=== PATIENT | male | born 1985 | race African-American/Black ===

== ENCOUNTER 2023-01-29 04:10 | Emergency (ER) | payer SELFPAY ==
[2023-01-29] MEDS ORDERED: ETOMIDATE 20 MG/10 ML VIAL IV ONE (04:32)
[2023-01-29] MEDS ORDERED: ROCURONIUM 50 MG/5 ML VIAL IV ONE (04:32)
[2023-01-29] MEDS ORDERED: NA CHLORIDE 0.9% 1,000 ML ONE (04:33)
[2023-01-29] MEDS ORDERED: MIDAZOLAM HCL IN 0.9 % NACL/PF 100 MG/100 ML BAG IVPB ONE (04:33)
[2023-01-29 04:51] LABS: Absolute Lymphocytes (CBC) 2.7 K/uL (0.7-4.9); Hematocrit 44.9 % (39.6-49.0); Lymphocytes % 26.2 % (15.3-44.8); MCV 86.8 fL (80-100); MPV 7.4 fL (7.6-11.3); Platelets 316 thou/uL (152-406); RBC Red Blood Cell Count 5.17 M/uL (4.33-5.43)
[2023-01-29 04:53] LABS: Arterial Blood Carboxyhemoglob 2.8 % (0-1.5); Blood Gas Oxyhemoglobin 94.3 % (94-97); Blood O2 Saturation 98.5 % (92-98.5)
[2023-01-29] MEDS ORDERED: NA CHLORIDE 0.9% 100 ML ONE (04:58)
[2023-01-29] MEDS ORDERED: LEVETIRACETAM 500 MG/5 ML VIAL IV ONE (04:58)
[2023-01-29] MEDS ORDERED: PANTOPRAZOLE 40 MG INJ ONE (05:10)
[2023-01-29 05:25] LABS: Albumin 3.3 g/dL (3.4-5.0); Bilirubin Direct 0.1 mg/dL (0-0.2); Bilirubin Indirect, Calculated 0.2 mg/dL (0.2-0.8); Bilirubin Total 0.3 mg/dL (0.2-1.0); C-Reactive Protein 7.12 mg/L (<3.00); Protein, Total 7.5 g/dL (6.4-8.2); Troponin High Sensitivity 17.3 pg/mL (<58.9)
[2023-01-29 05:31] LABS: Magnesium 2.4 mg/dL (1.6-2.4); Potassium 4.7 mEq/L (3.5-5.1)
[2023-01-29 05:32] LABS: Barbiturates NEGATIVE (NEGATIVE); Benzodiazepines POSITIVE (NEGATIVE); Cocaine POSITIVE (NEGATIVE); METHAMPHETAM POSITIVE (NEGATIVE); Opiates NEGATIVE (NEGATIVE); Phencyclidine NEGATIVE (NEGATIVE); THC Cannibis POSITIVE (NEGATIVE)
[2023-01-29 05:35] LABS: Methadone ND (NEGATIVE)
[2023-01-29 05:53] LABS: Specific Gravity 1.011 (1.005-1.030); Urine Bacteria <20 /HPF (<20); Urine Bilirubin NEGATIVE (Negative); Urine Blood Negative (Negative); Urine Clarity Turbid (Clear); Urine Color Light-Yellow (Yellow); Urine Glucose NEGATIVE (Negative); Urine Mucus Slight /HPF (None Seen); Urine Protein 1+ (Negative); Urine RBC None Seen /HPF (None Seen); Urine Sperm Present (None Seen); Urine Urobilinogen Normal (Normal)
--- NOTE | 2023-01-29 06:35 | EDPHYS ---
Physician Documentation [facility] Name: Luca Zepeda Age: 37 yrs Sex: Male : 1985 Arrival Date: 01/29/2023 Time: 04:10 Bed 2 Private MD: ED Physician Jonathan Banerjee HPI: 01/29 04:30 This 37 yrs old Black Male presents to ER via EMS with complaints of suicide attempt sp4 via hanging . 04:32 37-year-old male brought in by EMS after he was found unresponsive by his girlfriend sp4 and given in the noose fashioned by the belt. As reported by EMS patient was found by his girlfriend with a belt around his neck hanging at home. Patient's girlfriend reports that she took him out of the belt and positioned him on the floor. On arrival patient was unresponsive clammy and diaphoretic. Patient was placed in a c-collar and brought into ambulance where he begun posturing. Patient was then intubated for airway protection and given RSI medications prior to intubation. On arrival patient has reactive pupils but he remains unresponsive. ET tube size 7 is present on arrival c-collar is present left forearm IVs present on arrival. No additional history available, no known past medical history, no known allergies, no known medications. Patient's girlfriend has reported that patient has been consuming alcohol lately.. Historical: - Allergies: 04:17 No Known Drug Allergies; kl - Immunization history:: Adult Immunizations unknown. - Social history:: unknown, Smoking status: unknown. - Family history:: not pertinent. ROS: 04:32 Constitutional: ROS not available secondary to unresponsive condition sp4 04:32 Unable to obtain ROS due to patient is on ventilator, Exam: 04:32 Constitutional: This is a well developed, well nourished patient who is intubated on sp4 arrival unresponsive GCS of 3, pupils are equal round reactive to light. Head/Face: Normocephalic, atraumatic. Eyes: Pupils equal round and reactive to light, extraocular eye movements cannot be checked ENT: Nares patent. No nasal discharge, no septal abnormalities noted. Tympanic membranes are normal and external auditory canals are clear. Oropharynx with no redness, on examination significant posterior pharyngeal swelling noted Neck: Trachea midline, no thyromegaly or masses palpated, patient has c-collar present on arrival. Chest/axilla: Normal chest wall appearance and motion. Nontender with no deformity. No lesions are appreciated. Cardiovascular: Regular rate and rhythm with a normal S1 and S2. No gallops, murmurs, or rubs. Normal PMI, no JVD. No pulse deficits. Respiratory: Lungs have equal breath sounds bilaterally, clear to auscultation and percussion. No rales, rhonchi or wheezes noted. Patient is being ventilated with Ambu bag via ET tube. ET tube was exchanged to a larger size 8 ET tube on arrival. Abdomen/GI: Soft, No distension or tympany. No guarding or rebound. Back: No signs of step-off or deformity on spinal exam Male : Normal genitalia with no discharge or lesions. Skin: Warm, dry with normal turgor. Normal color with no rashes, no lesions, and no evidence of cellulitis. MS/ Extremity: Pulses equal, no cyanosis. Intact bilateral peripheral pulses, no signs of deformity or injury Neuro: Unresponsive, intubated, GCS of 3, additional exam is not possible 04:32 ECG was reviewed by the Attending Physician. EKG time 0 434, sinus tachycardia at the rate of 106, no ST elevation or depression, no ectopy, normal intervals Vital Signs: 04:20 BP 108 / 81; Pulse 102; Resp 16; Pulse Ox 100% on ETT ambu; FiO2 100 %; kl 04:43 Weight 72.57 kg; rv 05:00 BP 145 / 109; Pulse 113; Resp 16; Pulse Ox 100% on ETT vent; FiO2 50 %; rv 05:30 BP 125 / 93; Pulse 88; Resp 16; Pulse Ox 100% on ETT vent; FiO2 50 %; rv 06:00 BP 119 / 90; Pulse 90; Resp 16; Pulse Ox 100% ; FiO2 50 %; rv 06:25 Temp 94.9; rv 07:00 BP 129 / 102; Pulse 83; Resp 16; Temp 95.3(Ca); Pulse Ox 100% on ETT vent; FiO2 50 %; ph 07:24 BP 124 / 99; Pulse 90; Resp 16 S; Temp 95.4(Ca); Pulse Ox 100% on ETT vent; FiO2 50 %; kc6 08:00 BP 113 / 80; Pulse 91; Resp 16; Temp 95.9(Ca); Pulse Ox 100% on ETT vent; FiO2 50 %; ph 08:30 BP 119 / 82; Pulse 94; Resp 16 S; Temp 96.3(Ca); Pulse Ox 100% on ETT vent; FiO2 50 %; kc6 09:08 BP 114 / 82; Pulse 93; Resp 16; Temp 96.3(Ca); Pulse Ox 100% on ETT vent; FiO2 50 %; ph Procedures: 06:51 Intubation: Ventilated with 100% NRB prior to procedure. O2 saturation prior to sp4 procedure was 100 %. Intubated orally using # 4 Glory blade with 8.0 mm ETT. was successful on first attempt. Ventilated with Ambu bag. ventilator. Tube secured with ETT degroot at center of mouth measured 25 cm at lip. Placement verified by CXR, CO2 detector with (+) color change, auscultating bilateral breath sounds, O2 saturation after procedure was 100 %. [place] scope assisted intubation. Patient tolerated well, Size 7 ET tube that was placed by EMS was removed in ER and a size 8 ET tube was placed. MDM: 04:44 Patient medically screened. sp4 04:48 ED course: Chest X ray - FINDINGS: Single frontal view of the chest. Tubes and lines: sp4 Endotracheal tube with tip 4 cm above the tiffanie. NG tube with tip in stomach. Leads overlie the chest. Cardiomediastinal silhouette: Heart is not enlarged. Lungs: No consolidation, pneumothorax, or pleural effusion. Bones: No acute osseous abnormalities identified. Upper abdomen: No additional findings. IMPRESSION: Endotracheal tube and NG tube in appropriate position.. 06:18 ED course: CT neck - COMPARISON: No relevant prior studies available. FINDINGS: sp4 OROPHARYNX: See below. No significant tonsillar enlargement. No peritonsillar abscess. HYPOPHARYNX: See below. LARYNX: Unremarkable. Normal epiglottis. TRACHEA: Unremarkable. RETROPHARYNGEAL SPACE: Unremarkable. SUBMANDIBULAR/PAROTID GLANDS: Unremarkable. Glands are normal in size. THYROID: Unremarkable. No enlarged or calcified nodules. BONES/JOINTS: Straightening of the cervical spine as the patient is positioned. No vertebral body height loss. Dens is intact. No fracture or subluxation. No dislocation. Craniocervical orientation is normal. No significant spinal canal stenosis. SOFT TISSUES: Mild circumferential soft tissue swelling and thickening is demonstrated within the oral pharyngeal and hypopharyngeal soft tissues, with mild associated narrowing of the airway around the endotracheal tube, presumably related to tube placement. No abnormal prevertebral soft tissue swelling. No paravertebral soft tissue swelling. VASCULATURE: No acute findings. No acute abnormalities of the left or right cervical carotid or vertebral arteries. LYMPH NODES: Unremarkable. No lymphadenopathy. LUNG APICES: Unremarkable as visualized. TUBES, LINES AND DEVICES: ETT terminates approximately 1.5 cm proximal to the tiffanie. Enteric tube partially visualized, but demonstrated within the visualized esophagus. IMPRESSION: 1. No acute osseous abnormality of the cervical spine. No gross abnormalities of the soft tissues of the neck. 2. Support devices as above. . 06:32 ED course: CT head, C spine, chest , abdomen , pelvis - FINDINGS: Brain: No significant sp4 white matter changes. No focal mass effect. Sheikh-white matter differentiation is within normal limits. No hemorrhage. Ventricles: No ventriculomegaly or midline shift. Extra-axial spaces: No extra-axial collection or hemorrhage. Paranasal sinuses and mastoid air cells: Well-aerated Bones: Unremarkable Soft tissues: Unremarkable IMPRESSION: No evidence of acute intracranial pathology. PROCEDURE: Head C Spine Cap W Con CLINICAL HISTORY: hanging TECHNIQUE: Contiguous axial CT images obtained through the cervical spine without IV contrast. Coronal and sagittal reformatted images also provided. This exam was performed according to our departmental dose-optimization program, which includes automated exposure control, adjustment of the mA and/or kV according to patient size and/or use of iterative reconstruction technique. COMPARISON: None available for comparison FINDINGS: Vertebra: No acute fracture or subluxation. Degenerative changes: Intervertebral disc spaces are fairly well maintained. No critical canal stenosis. Foramina appear patent. Prevertebral soft tissues: Unremarkable Lung apices: Clear IMPRESSION: No acute cervical spine fracture. IPROCEDURE: Head C Spine Cap W Con CLINICAL HISTORY: hanging TECHNIQUE: Contiguous axial images obtained through the chest , abdomen and pelvis following the uneventful administration of IV contrast. Coronal and sagittal reformatted images provided. This exam was performed according to our departmental dose-optimization program, which includes automated exposure control, adjustment of the mA and/or kV according to patient size and/or use of iterative reconstruction technique. COMPARISON: No prior exams provided for comparison. FINDINGS: Lungs: No focal consolidation. Airways are patent. ET tube proximal to the level of the tiffanie. Soft tissue density within the trachea and extending to the left mainstem bronchus, consistent with aspiration. Atelectatic changes in the lung bases. Pleura: No effusion. No pneumothorax. Heart and pericardium: The heart is normal in size. No pericardial effusion. Mediastinum and carolyn: Calcified hilar and mediastinal nodes. Lower neck and chest wall: Unremarkable Vessels: Unremarkable Bones: Unremarkable Liver: Unremarkable Gallbladder and biliary system: Unremarkable Pancreas: Unremarkable Spleen: Unremarkable Adrenals: Unremarkable Kidneys: No evidence of urolithiasis or obstructive uropathy. Gl : NG tube in the stomach. No obstruction. No appreciable mucosal thickening. Appendix: No findings to suggest acute appendicitis. Urinary bladder: Ovalles catheter in the urinary bladder. Reproductive: Unremarkable as visualized Lymph nodes: No pathologically enlarged lymph nodes. Peritoneum: No focal fluid collection. No free air. Vessels: No abdominal aortic aneurysm. Abdominal wall: Unremarkable Bones: Unremarkable IMPRESSION: 1. Soft tissue density within the trachea and extending to the left mainstem bronchus, consistent with aspiration. 2. No acute intra-abdominal or pelvic pathology.. 06:35 Differential Diagnosis altered mental status, sepsis, flu. Data reviewed: vital signs, sp4 nurses notes, EMS record, lab test result(s), EKG, radiologic studies, CT scan, plain films. Consideration of Admission/Observation Escalation of care including admission/observation considered. Management of patient was discussed with the following: Network Security Consultant: Discussed with [facility] hospitalist. 06:52 ED course: Patient with require therapeutic hypothermia for the next 24 hours. Patient sp4 at this time remains at 94.9 F which is consistent with temperature goal. I have discussed patient with hospitalist at the admitting service, and hospitalist requested transfer for higher level of care for hypothermia and other management in ICU.. ICU bed is currently not available here. . 07:09 Transition of care: After a detail discussion of the patient's case, care is sp4 transferred to Jonathan Banerjee MD. 07:09 ED course: Awaiting for transfer at this time. sp4 07:30 ED course: Discussed case with [facility] aeroplane pilot who has graciously accepted sp3 this patient. We will transfer him via ground EMS. Patient is currently stable and is sedation has been switched to propofol.. 01/29 04:12 Order name: Basic Metabolic Panel; Complete Time: 05:32 [facility] 01/29 04:12 Order name: CBC with Diff; Complete Time: 05:19 [facility] 01/29 04:12 Order name: LFT's; Complete Time: 05:32 [facility] 01/29 04:12 Order name: Magnesium; Complete Time: 05:32 [facility] 01/29 04:12 Order name: NT PRO-BNP; Complete Time: 05:32 [facility] 01/29 04:12 Order name: PT-INR; Complete Time: 05:19 [facility] 01/29 04:12 Order name: Troponin HS; Complete Time: 05:32 [facility] 01/29 04:13 Order name: Alcohol Level; Complete Time: 05:32 [facility] 01/29 04:13 Order name: Urine Drug Screen; Complete Time: 05:45 [facility] 01/29 04:14 Order name: Urinalysis W/Microscopic; Complete Time: 06:06 [facility] 01/29 04:14 Order name: COVID-19 SARS RT PCR; Complete Time: 06:06 [facility] 01/29 04:42 Order name: Lactate w/ 2H reflex if indic.; Complete Time: 05:45 [facility] 01/29 04:45 Order name: ABG; Complete Time: 05:03 [facility] 01/29 04:48 Order name: Creatine Phosphokinase; Complete Time: 05:32 [facility] 01/29 04:48 Order name: C-Reactive Protein; Complete Time: 05:32 [facility] 01/29 06:44 Order name: CREATININE WHOLE BLOOD; Complete Time: 06:50 [facility] 01/29 08:51 Order name: Lactate Sepsis 2 HR Follow-up; Complete Time: 09:55 [facility] 01/29 04:12 Order name: XRAY Chest (1 view) [facility] 01/29 04:13 Order name: CT Soft Tissue Neck W/contr [facility] 01/29 04:40 Order name: Head C Spine Cap W Con [facility] 01/29 04:12 Order name: EKG; Complete Time: 04:13 [facility] 01/29 04:12 Order name: Cardiac monitoring; Complete Time: 04:24 [facility] 01/29 04:12 Order name: EKG - Nurse/Tech; Complete Time: 04:43 [facility] 01/29 04:12 Order name: IV Saline Lock; Complete Time: 04:24 sp4 01/29 04:12 Order name: Labs collected and sent; Complete Time: 04:24 sp4 01/29 04:12 Order name: O2 Per Protocol; Complete Time: 04:24 sp4 01/29 04:12 Order name: O2 Sat Monitoring; Complete Time: 04:24 sp4 01/29 04:14 Order name: Intubation Setup; Complete Time: 04:51 sp4 01/29 04:14 Order name: NG Tube; Complete Time: 04:48 sp4 01/29 04:14 Order name: Ovalles; Complete Time: 04:48 sp4 EC:32 Rate is 106 beats/min. Rhythm is regular, Sinus tachycardia. QRS [place] is Normal. MI sp4 interval is normal. QRS interval is normal. QT interval is normal. No Q waves. T waves are Normal. No ST changes noted. Clinical impression: No evidence of ischemia. Interpreted by me. Administered Medications: 04:18 Drug: Etomidate IVP 40 mg IVP once Route: IVP; Site: left forearm; ha1 04:20 Drug: Rocuronium IVP 100 mg IVP once Route: IVP; Site: left forearm; ha1 04:36 Drug: Midazolam IVP or IV 0.01 mg/kg/h IV at calculated rate See Administration ha1 Instructions; (Standard concentration: 100 mg / 100 mL NS); Recommended max rate 0.1 mg/kg/hr; Titrate 0.01 mg/kg/hr as often as every 30 minutes to achieve goal (see titration policy); Goal parameter RASS 0 to -2 {Note: 1 mg /hr.} Route: IV; Rate: calculated rate; Site: left forearm; 05:00 Follow up: Response: No adverse reaction ha1 08:51 Follow up: Rate change 2 mg/hr ph 04:42 Drug: NS 0.9% IV 1000 ml IV at 1 bolus Per protocol; 1000 mL bolus Route: IV; Rate: 1 rv bolus; Site: right antecubital; 04:42 Drug: Keppra IV 1000 mg IV at bolus once Route: IV; Rate: bolus; Site: right rv antecubital; 05:00 Drug: Pantoprazole IVP 40 mg IVP once Route: IVP; Site: right upper arm; rv 06:00 Follow up: Response: No adverse reaction ha1 06:30 Drug: D5-NS IV 1000 ml IV at 125 ml/hr continuous Route: IV; Rate: 125 ml/hr; Site: ha1 right antecubital; 07:23 Follow up: Response: No adverse reaction; IV Status: Infusion continued upon admission [facility] 07:20 Drug: Propofol IV 5 mcg/kg/min IV at calculated rate See Administration Instructions; kc6 Standard concentration 1000 mg / 100 mL; Recommended max rate 50 mcg/kg/min; Titrate 2 mcg/kg/min every 5 minutes to achieve goal (see titration policy); Goal parameter RASS score 0 to -2 Route: IV; Rate: calculated rate; Site: right upper arm; 08:00 Follow up: Rate change 10 mcg/kg/min ph 08:36 Follow up: Response: No adverse reaction; RASS: Moderate sedation (-3); IV Status: kc6 Infusion continued upon transfer 08:52 Follow up: Rate change 15 mcg/kg/min ph 09:21 Follow up: Response: No adverse reaction; RASS: Moderate sedation (-3); IV Status: ph Infusion continued upon transfer 07:20 Drug: Propofol IVP 20 mg IVP once; Document RASS score. Route: IVP; Site: right upper 6 arm; 08:36 Follow up: Response: No adverse reaction; RASS: Moderate sedation (-3) [facility] 09:21 Follow up: Response: No adverse reaction; RASS: Moderate sedation (-3) ph Disposition Summary: 01/29/23 06:34 Transfer Ordered Notes: Transfer Location: [facility] sp4 Reason: Higher level of care sp4 Condition: Stable sp4 Problem: new sp4 Symptoms: have improved sp4 Accepting Physician: [facility] hospitalist (01/29/23 09:57) ph Diagnosis - Asphyxia sp4 - Hypoxic brain injury, intentional suicide attempt, asphyxiation, acute respiratory sp4 failure Forms: - Medication Reconciliation Form sp4 - SBAR form sp4 Critical care time excluding procedures: 06:35 Critical care time: Bedside Care: 36 minutes, Consultation: 12 minutes. Total time: 48 sp4 minutes Signatures: Dispatcher [employer] Zulema Briceno RN RN kl Hall, Patricia, RN RN ph Vicente, Ronaldo, RN RN rv Patel, Setul, MD MD sp3 Jinny De La Torre RN RN ha1 Henrietta Franz RN RN kc6 Miguel A Lopez MD MD sp4 Corrections: (The following items were deleted from the chart) 04:18 04:17 PMHx: Hypertension; kl kl 04:40 04:13 Head C Spine MPR Wo Con+CT.RAD.BRZ ordered. EDMS EDMS 04:41 04:33 Chest Abdomen Pelvis W Con+CT.RAD.BRZ ordered. EDMS EDMS 04:48 04:43 CREATINE PHOSPHOKINASE+C.LAB.BRZ ordered. EDMS EDMS 04:48 04:43 C-REACTIVE PROTEIN+C.LAB.BRZ ordered. EDMS EDMS 09:57 06:[facility]
--- NOTE | 2023-01-29 06:35 | ER ---
Nurse's Notes [facility] Name: Luca Zepeda Age: 37 yrs Sex: Male : 1985 Arrival Date: 01/29/2023 Time: 04:10 Bed 2 Private MD: Diagnosis: Asphyxia;Hypoxic brain injury, intentional suicide attempt, asphyxiation, acute respiratory failure Presentation: 01/29 04:15 Chief complaint: EMS states: found unresponsive in closet with belt around neck per pt kl girlfriend pt has been drinking heavily and depressed recently. Initial Sepsis Screen: Does the patient meet any 2 criteria? No. Patient's initial sepsis screen is negative. Does the patient have a suspected source of infection? No. Patient's initial sepsis screen is negative. Risk Assessment: Do you want to hurt yourself or someone else? Unable to obtain. Note pt intubated by EMS reports no spontaneous breathing pt was diaphoretic. 04:15 Method Of Arrival: EMS: [facility] 04:15 Acuity: JOHN 2 04:15 Onset of symptoms was January 29, 2023. ha1 07:00 Coronavirus screen: At this time, the client does not indicate any symptoms associated kc6 with coronavirus-19. Ebola Screen: No symptoms or risks identified at this time. Triage Assessment: 04:18 General: Appears well developed, well nourished, Behavior is unresponsive. Pain: Unable kl to use pain scale. Patient is intubated. Patient is unresponsive. Neuro: Level of Consciousness is unresponsive, Pupils are Pupil Size: 2 pinpoint. Cardiovascular: Rhythm is sinus tachycardia. Respiratory: Ventilator assessment: ET Tube: 7.0 Ventilator Mode: hand bagging. Historical: - Allergies: 04:17 No Known Drug Allergies; kl - Immunization history:: Adult Immunizations unknown. - Social history:: unknown, Smoking status: unknown. - Family history:: not pertinent. Screenin:24 Nutritional screening: No deficits noted. Tuberculosis screening: No symptoms or risk ha1 factors identified. 07:00 Abuse screen: unable to obtain at this time as pt is currently unresponsive and orally kc6 intubated. 07:[address] [facility] ED Fall Risk Assessment (Adult) History of falling in the last 3 months, kc6 including since admission No falls in past 3 months (0 pts) Confusion or Disorientation No (0 pts) Intoxicated or Sedated Yes (3 pts) Impaired Gait No (0 pts) Mobility Assist Device Used No (0 pt) Altered Elimination No (0 pt) Score/Fall Risk Level 3 or more points = High Risk. Assessment: 04:15 General: Appears well developed, Behavior is unresponsive. Pain: Unable to use pain ha1 scale. FLACC scale score is 0 out of 10. Neuro: Level of Consciousness is unresponsive, Oriented to Intubated . Cardiovascular: Heart tones S1 S2 present Capillary refill < 3 seconds Clubbing of nail beds is present. Respiratory: Airway via oral intubation. 04:21 Reassessment: EMS intubation removed by Dr. lopez. ha1 04:22 Reassessment: Intubated by Dr. Villanueva with size 8 tube 25 at the lip. ha1 04:30 Reassessment: verified placement of intubation tube and NG by X-ray. ha1 05:16 Reassessment: going to CT. RT at bedside. ha1 05:45 Reassessment: back fro CT. ha1 06:00 Respiratory: Airway via oral intubation Ventilator assessment: Respiratory Rate: 16. ha1 06:00 Cardiovascular: Capillary refill < 3 seconds. Respiratory:. ha1 07:00 General: Appears in no apparent distress. Behavior is unresponsive. Pain: Unable to use kc6 pain scale. Patient is intubated. Neuro: [place] Agitation-Sedation Scale (RASS): -3 Moderate Sedation Level of Consciousness is unresponsive, Oriented to none Pupils are PERRLA. Cardiovascular: Heart tones S1 S2 present Capillary refill < 3 seconds Rhythm is sinus rhythm. Respiratory: Airway via oral intubation Trachea midline Respiratory effort is even, unlabored, Respiratory pattern is regular, symmetrical, Breath sounds are clear bilaterally. GI: No signs and/or symptoms were reported involving the gastrointestinal system. NGT in place, Site clean. : No signs and/or symptoms were reported regarding the genitourinary system. Ovalles in place Urine is clear. EENT: No signs and/or symptoms were reported regarding the EENT system. Derm: Skin is healthy with good turgor, Skin is pink, warm \T\ dry. Musculoskeletal: No signs and/or symptoms reported regarding the musculoskeletal system. Circulation, motion, and sensation intact. Capillary refill < 3 seconds, Range of motion: intact in all extremities. 08:00 Reassessment: Patient appears in no apparent distress at this time. No changes from kc6 previously documented assessment. Patient and/or family updated on plan of care and expected duration. Pain level reassessed. 08:15 Reassessment: Attempted to call report to [facility], asked to call back in 10-15 ph minutes. 08:57 Reassessment: Patient appears in no apparent distress at this time. Patient and/or ph family updated on plan of care and expected duration. Pain level reassessed. Report called to VICTOR MANUEL Rodriguez at [facility], awaiting EMS for transport. 09:20 Reassessment: [facility] at bedside for transfer, report given to SKY Berumen-P. ph Vital Signs: 04:20 BP 108 / 81; Pulse 102; Resp 16; Pulse Ox 100% on ETT ambu; FiO2 100 %; kl 04:43 Weight 72.57 kg; rv 05:00 BP 145 / 109; Pulse 113; Resp 16; Pulse Ox 100% on ETT vent; FiO2 50 %; rv 05:30 BP 125 / 93; Pulse 88; Resp 16; Pulse Ox 100% on ETT vent; FiO2 50 %; rv 06:00 BP 119 / 90; Pulse 90; Resp 16; Pulse Ox 100% ; FiO2 50 %; rv 06:25 Temp 94.9; rv 07:00 BP 129 / 102; Pulse 83; Resp 16; Temp 95.3(Ca); Pulse Ox 100% on ETT vent; FiO2 50 %; ph 07:24 BP 124 / 99; Pulse 90; Resp 16 S; Temp 95.4(Ca); Pulse Ox 100% on ETT vent; FiO2 50 %; kc6 08:00 BP 113 / 80; Pulse 91; Resp 16; Temp 95.9(Ca); Pulse Ox 100% on ETT vent; FiO2 50 %; ph 08:30 BP 119 / 82; Pulse 94; Resp 16 S; Temp 96.3(Ca); Pulse Ox 100% on ETT vent; FiO2 50 %; kc6 09:08 BP 114 / 82; Pulse 93; Resp 16; Temp 96.3(Ca); Pulse Ox 100% on ETT vent; FiO2 50 %; ph ED Course: 04:11 Patient arrived in ED. jj6 04:11 Miguel A Lopez MD is Attending Physician. sp4 04:15 Patient has correct armband on for positive identification. Placed in gown. Bed in low ha1 position. Side rails up X2. near nurse station. 04:17 Triage completed. kl 04:25 Inserted saline lock: 20 gauge in right antecubital area, using aseptic technique. rv1 Blood collected. 04:26 Troponin HS Sent. rv1 04:26 PT-INR Sent. rv1 04:26 NT PRO-BNP Sent. rv1 04:26 Magnesium Sent. rv1 04:26 LFT's Sent. rv1 04:26 CBC with Diff Sent. rv1 04:26 Basic Metabolic Panel Sent. rv1 04:26 NGT: inserted 12 Fr. other oral route. inserted by Dr. Mondragon. ha1 04:27 Ovalles cath inserted, using sterile technique, 16 Fr., by ED staff, balloon inflated, to ha1 gravity drainage, urine specimen collected. 04:37 XRAY Chest (1 view) In Process Unspecified. EDMS 05:44 Notified ED physician of a critical lab result(s). lactate 4.1. kl 05:48 CT Soft Tissue Neck W/contr In Process Unspecified. EDMS 05:48 Head C Spine Cap W Con In Process Unspecified. EDMS 05:56 Arthur Faulkner, VICTOR MANUEL is Primary Nurse. rv 06:21 Initiated transfer with Roselia at [facility]. rv1 06:27 Inserted midline g18 x 10cm, RIGHT UPPER ARM. rv 07:00 Report received from VICTOR MANUEL Grant \T\ Jinny De La Torre RN. kc6 07:00 Arm band placed on. kc6 07:08 Attending Physician role handed off by Miguel A Lopez MD sp3 07:08 Jonathan Banerjee MD is Attending Physician. sp3 08:50 No provider procedures requiring assistance completed. Patient transferred, IV remains ph in place. 10:03 pt accepted in transfer to [facility] by dr hoskins, admin approval given by edgard cason pt going to [address] [place] [address] [address] 15, transported by ems. Administered Medications: 04:18 Drug: Etomidate IVP 40 mg IVP once Route: IVP; Site: left forearm; ha1 04:20 Drug: Rocuronium IVP 100 mg IVP once Route: IVP; Site: left forearm; [facility] 04:36 Drug: Midazolam IVP or IV 0.01 mg/kg/h IV at calculated rate See Administration ha1 Instructions; (Standard concentration: 100 mg / 100 mL NS); Recommended max rate 0.1 mg/kg/hr; Titrate 0.01 mg/kg/hr as often as every 30 minutes to achieve goal (see titration policy); Goal parameter RASS 0 to -2 {Note: 1 mg /hr.} Route: IV; Rate: calculated rate; Site: left forearm; 05:00 Follow up: Response: No adverse reaction 1 08:51 Follow up: Rate change 2 mg/hr ph 04:42 Drug: NS 0.9% IV 1000 ml IV at 1 bolus Per protocol; 1000 mL bolus Route: IV; Rate: 1 rv bolus; Site: right antecubital; 04:42 Drug: Keppra IV 1000 mg IV at bolus once Route: IV; Rate: bolus; Site: right rv antecubital; 05:00 Drug: Pantoprazole IVP 40 mg IVP once Route: IVP; Site: right upper arm; rv 06:00 Follow up: Response: No adverse reaction [facility] 06:30 Drug: D5-NS IV 1000 ml IV at 125 ml/hr continuous Route: IV; Rate: 125 ml/hr; Site: [facility] right antecubital; 07:23 Follow up: Response: No adverse reaction; IV Status: Infusion continued upon admission kc6 07:20 Drug: Propofol IV 5 mcg/kg/min IV at calculated rate See Administration Instructions; kc6 Standard concentration 1000 mg / 100 mL; Recommended max rate 50 mcg/kg/min; Titrate 2 mcg/kg/min every 5 minutes to achieve goal (see titration policy); Goal parameter RASS score 0 to -2 Route: IV; Rate: calculated rate; Site: right upper arm; 08:00 Follow up: Rate change 10 mcg/kg/min ph 08:36 Follow up: Response: No adverse reaction; RASS: Moderate sedation (-3); IV Status: kc6 Infusion continued upon transfer 08:52 Follow up: Rate change 15 mcg/kg/min ph 09:21 Follow up: Response: No adverse reaction; RASS: Moderate sedation (-3); IV Status: ph Infusion continued upon transfer 07:20 Drug: Propofol IVP 20 mg IVP once; Document RASS score. Route: IVP; Site: right upper kc6 arm; 08:36 Follow up: Response: No adverse reaction; RASS: Moderate sedation (-3) [facility] 09:21 Follow up: Response: No adverse reaction; RASS: Moderate sedation (-3) ph Medication: 08:50 VIS not applicable for this client. ph Outcome: 06:34 ER care complete, transfer ordered by . sp4 09:20 Transferred by ground [facility] to [facility], Transfer form ph completed. X-rays sent w/ patient. 09:20 Condition: stable 09:57 Patient left the ED. ph Signatures: Dispatcher [employer] EDMS Sowmya Boykin Kimberly RN VICTOR MANUEL Medina Toney RN VICTOR MANUEL Arthur Faulkner RN VICTOR MANUEL rv Jonathan Banerjee MD MD sp3 Jennifer Gentilej6 Jinny De La Torre RN RN ha1 Henrietta Franz RN RN 6 WylieDlay ramon rv1 Miguel A Lopez MD MD sp4 Corrections: (The following items were deleted from the chart) 04:18 04:17 PMHx: Hypertension; [facility] 04:50 04:20 Rocuronium IVP 100 mg IVP in left forearm [facility] 04:50 04:18 Etomidate IVP 40 mg IVP in left forearm [facility] 04:50 04:36 Midazolam IVP or IV 1 mg IV at calculated rate in left forearm; 1 mg /hr [facility] 06:26 06:26 Temp 92.9F Catheter; rv1 rv1
[2023-01-29] MEDS ORDERED: D5 0.9 NS 1,000 ML IV ONE (06:42)
[2023-01-29] MEDS ORDERED: propofoL 1,000 MG/100 ML VIAL IV ONE (07:27)
--- NOTE | 2023-01-29 07:57 | EKG ---
Test Date: 2023-01-29 Test Time: 04:34:34 Cras: EAMON MEASUREMENT RESULTS: Intervals: Rate: 106 [place]: 138 QRSD: 90 QT: 354 QTc: 470 [place]: P: 78 AZ: 138 QRS: 81 T: 82 INTERPRETIVE STATEMENTS: Sinus tachycardia Possible Left atrial enlargement Borderline ECG Compared to ECG 08/08/2004 21:03:00 Sinus rhythm no longer present Electronically Signed On 01-29-23 07:56:38 CDT by Melecio Nur
--- NOTE | 2023-01-29 11:30 | RAD REPORT ---
EXAM DESCRIPTION: Head C Spine Cap W Con CLINICAL HISTORY: Hanging TECHNIQUE: Contiguous axial CT images obtained through the brain without IV contrast. Coronal and sa gittal reformatted images were provided. This exam was performed according to our departmental dose-optimization program, which includes autom ated exposure control, adjustment of the mA and/or kV according to patient size and/or use of iterati ve reconstruction technique. COMPARISON: None available for comparison FINDINGS: Brain: No significant white matter changes. No focal mass effect. Sheikh-white matter differ entiation is within normal limits. No hemorrhage. Ventricles: No ventriculomegaly or midline shift. Extra-axial spaces: No extra-axial collection or hemorrhage. Paranasal sinuses and mastoid air cells: Well-aerated Bones: Unremarkable Soft tissues: Unremarkable IMPRESSION: No evidence of acute intracranial pathology. TECHNIQUE: Head C Spine Cap W Con CLINICAL HISTORY: Hanging TECHNIQUE: Contiguous axial CT images obtained through the cervical spine without IV contrast. Cor onal and sagittal reformatted images also provided. This exam was performed according to our departmental dose-optimization program, which includes autom ated exposure control, adjustment of the mA and/or kV according to patient size and/or use of iterati ve reconstruction technique. COMPARISON: None available for comparison FINDINGS: Vertebra: No acute fracture or subluxation. Degenerative changes: Intervertebral disc spaces are fairly well maintained. No critical canal stenos is. Foramina appear patent. Prevertebral soft tissues: Unremarkable Lung apices: Clear IMPRESSION: No acute cervical spine fracture. IPROCEDURE: Head C Spine Cap W Con CLINICAL HISTORY: Hanging TECHNIQUE: Contiguous axial images obtained through the chest , abdomen and pelvis following the une ventful administration of IV contrast. Coronal and sagittal reformatted images provided. This exam was performed according to our departmental dose-optimization program, which includes autom ated exposure control, adjustment of the mA and/or kV according to patient size and/or use of iterati ve reconstruction technique. COMPARISON: No prior exams provided for comparison. FINDINGS: Lungs: No focal consolidation. Airways are patent. ET tube proximal to the level of the tiffanie. Soft tissue density within the trachea and extending to the left mainstem bronchus, consistent with a spiration. Atelectatic changes in the lung bases. Pleura: No effusion. No pneumothorax. Heart and pericardium: The heart is normal in size. No pericardial effusion. Mediastinum and carolyn: Calcified hilar and mediastinal nodes. Lower neck and chest wall: Unremarkable Vessels: Unremarkable Bones: Unremarkable Liver: Unremarkable Gallbladder and biliary system: Unremarkable Pancreas: Unremarkable Spleen: Unremarkable Adrenals: Unremarkable Kidneys: No evidence of urolithiasis or obstructive uropathy. Gl : NG tube in the stomach. No obstruction. No appreciable mucosal thickening. Appendix: No findings to suggest acute appendicitis. Urinary bladder: Ovalles catheter in the urinary bladder. Reproductive: Unremarkable as visualized Lymph nodes: No pathologically enlarged lymph nodes. Peritoneum: No focal fluid collection. No free air. Vessels: No abdominal aortic aneurysm. Abdominal wall: Unremarkable Bones: Unremarkable IMPRESSION: 1. Soft tissue density within the trachea and extending to the left mainstem bronchus, consistent with aspiration. 2. No acute intra-abdominal or pelvic pathology. Electronically signed by: Hank Campbell MD 01/29/2023 6:23 AM CDT Due to temporary technical issues with the PACS/Fluency reporting system, reports are being signed by the in house radiologists without review as a courtesy to insure prompt reporting. The interpreting radiologist is fully responsible for the content of the report.
--- NOTE | 2023-01-29 11:45 | RAD REPORT ---
EXAM DESCRIPTION: CT Neck With Intravenous Contrast CLINICAL HISTORY: The patient is 37 years old and is Male; suffocation [facility] MAIN TECHNIQUE: Axial computed tomography images of the neck with intravenous contrast. Sagittal and co lorenzo reformatted images were created and reviewed. This CT exam was performed using one or more of the following dose reduction techniques: automated exposure control, adjustment of the mA and/or k V according to patient size, and/or use of iterative reconstruction technique. COMPARISON: No relevant prior studies available. FINDINGS: OROPHARYNX: See below. No significant tonsillar enlargement. No peritonsillar abscess. HYPOPHARYNX: See below. LARYNX: Unremarkable. Normal epiglottis. TRACHEA: Unremarkable. RETROPHARYNGEAL SPACE: Unremarkable. SUBMANDIBULAR/PAROTID GLANDS: Unremarkable. Glands are normal in size. THYROID: Unremarkable. No enlarged or calcified nodules. BONES/JOINTS: Straightening of the cervical spine as the patient is positioned. No vertebral body height loss. Dens is intact. No fracture or subluxation. No dislocation. Craniocervical orientation is normal. No significant spinal canal stenosis. SOFT TISSUES: Mild circumferential soft tissue swelling and thickening is demonstrated within the o ral pharyngeal and hypopharyngeal soft tissues, with mild associated narrowing of the airway around t he endotracheal tube, presumably related to tube placement. No abnormal prevertebral soft tissue swelling. No paravertebral soft tissue swelling. VASCULATURE: No acute findings. No acute abnormalities of the left or right cervical carotid or vertebral arteries. LYMPH NODES: Unremarkable. No lymphadenopathy. LUNG APICES: Unremarkable as visualized. TUBES, LINES AND DEVICES: ETT terminates approximately 1.5 cm proximal to the tiffanie. Enteric tube partially visualized, but demonstrated within the visualized esophagus. IMPRESSION: 1. No acute osseous abnormality of the cervical spine. No gross abnormalities of the s oft tissues of the neck. 2. Support devices as above. Electronically signed by: James Ribera MD 01/29/2023 6:07 AM CDT Due to temporary technical issues with the PACS/Fluency reporting system, reports are being signed by the in house radiologists without review as a courtesy to insure prompt reporting. The interpreting radiologist is fully responsible for the content of the report.
--- NOTE | 2023-01-29 12:02 | RAD REPORT ---
EXAM DESCRIPTION: Chest Single View CLINICAL HISTORY: CHEST PAIN COMPARISON None. FINDINGS: Single frontal view of the chest. Tubes and lines: Endotracheal tube with tip 4 cm above the tiffanie. NG tube with tip in stomach. Leads overlie the chest. Cardiomediastinal silhouette: Heart is not enlarged. Lungs: No consolidation, pneumothorax, or pleural effusion. Bones: No acute osseous abnormalities identified. Upper abdomen: No additional findings. IMPRESSION: Endotracheal tube and NG tube in appropriate position. Electronically signed by: Kev Trinh 01/29/2023 4:44 AM CDT Due to temporary technical issues with the PACS/Fluency reporting system, reports are being signed by the in house radiologists without review as a courtesy to insure prompt reporting. The interpreting radiologist is fully responsible for the content of the report.
[2023-01-29 16:29] VITALS: BP 114/82; TEMP 96.3; O2SAT 100
== END 2023-01-29 09:57 | disposition short-term general hospital (02) ==
LOC: ER 04:10
PROC: 0BH17EZ Insertion of Endotracheal Airway into Trachea, Via Natural or Artificial Opening (ICD-10-PCS; principal; 2023-01-29)
DX: R09.01 Asphyxia (principal); S06.899A Other specified intracranial injury with loss of consciousness of unspecified duration, initial encounter; X83.8XXA Intentional self-harm by other specified means, initial encounter; Y93.89 Activity, other specified; Y92.019 Unspecified place in single-family (private) house as the place of occurrence of the external cause; Z11.52 Encounter for screening for COVID-19
CPT/HCPCS: 31500; 36415; 36600; 51702; 70450; 70491; 71045; 71260; 72125; 74177; 80048; 80076; 80307; 81001; 82077; 82550; 82565; 82805; 83605; 83735; 83880; 84484; 85025; 85610; 86140; 87635; 93005; 94002; 99291; 99292; C9113; J1953; J2250; J2704; J7030; J7042; Q9967

== ENCOUNTER 2023-03-06 11:22 | Emergency (ER) | payer SELFPAY ==
--- OUTSIDE RECORDS SUMMARY | 2023-03-06 11:26 | XMS REPORT | Continuity of Care Document ---
:1985 Author Organization [facility] t Address [address] [place] [address] [place] [id number] Care Team Providers Name Role Phone BETO NESBITT Attending Clinician Unavailable CAROL ANN CYR Attending Clinician Unavailable Afshan Moyer MD Attending Clinician Lizeth Hebert MD Attending Clinician Carol Ann Cyr MD Attending Clinician No, Pcp Attending Clinician Unavailable FUENTES SANCHEZ Attending Clinician Unavailable AFSHAN MOYER Attending Clinician Unavailable BETO NESBITT Admitting Clinician Unavailable AFSHAN MOYER Admitting Clinician Unavailable Payers Payer Name Policy Type Policy Number Effective Date Expiration Date S chuy AETNA HMO [id number] 2022 00:00:00 AET[employer] EXCHANGE [id number] 2022 00:00:00 Problems Condition Condition Condition Status Onset Resolution Last Treating Co mments Source Name Details Category Date Date Treatment Clinician Date Suicide Suicide Disease Active 2022-[address] [facility] attempt by attempt by 0-26 Evelyn kes hanging hanging 00:00: Medical 00 Center Allergies, Adverse Reactions, Alerts Allergy Allergy Status Severity Reaction(s) Onset Inactive Treating Comm ents Source Name Type Date Date Clinician NO KNOWN Allergy Active [facility] Social History Social Habit Start Date Stop Date Quantity Comments Source Sexual orientation [facility] Alcohol intake 2023-01-30 2023-01-30 Current drinker [facility] S t Lujoshua 00:00:00 00:00:00 of alcohol [facility] Center (finding) Alcohol Comment 2023-01-30 2023-01-3001/2023: 2-3+ [facility] 00:00:00 00:00:00 beers daily [facility] Sex Assigned At [birth year] [facility] St Evelyn lewis 00:00:00 00:00:00 Medical Center Medications This patient has no known medications. Vital Signs Vital Name Observation Time Observation Value Comments Source WEIGHT 2023-01-30 02:00:00 72.2 kg HEIGHT 2023-01-29 11:20:00 182 cm WEIGHT 2023-01-29 11:20:00 72 kg WEIGHT 2023-01-30 02:00:00 72.2 kg HEIGHT 2023-01-29 11:20:00 182 cm WEIGHT 2023-01-29 11:20:00 72 kg WEIGHT 2023-01-30 02:00:00 72.2 kg HEIGHT 2023-01-29 11:20:00 182 cm WEIGHT 2023-01-29 11:20:00 72 kg Heart rate 2023-02-03 11:04:44 104 /min [facility] Respiratory rate 2023-02-03 11:04:44 17 /min [facility] Oxygen saturation in 2023-02-03 11:04:44 98 /min [facility] Arterial blood by Medical Ce nter Pulse oximetry Systolic blood 2023-02-03 11:04:15 125 mm[Hg] [facility] Diastolic blood 2023-02-03 11:04:15 95 mm[Hg] [facility] S [facility] Body temperature 2023-02-03 11:03:37 37.06 Kristine [facility] Body weight 2023-01-30 02:00:00 72.2 kg [facility] BMI 2023-01-30 02:00:00 21.80 kg/m2 [facility] Body height 2023-01-29 11:20:00 182 cm [facility] Procedures Procedure Date / Time Performed Performing Clinician Sour e BASIC METABOLIC PANEL 2023-02-01 10:21:00 Klarissa, Carol Ann [facility] MAGNESIUM 2023-02-01 09:21:00 Carol Ann Cyr [facility] 2023-02-01 06:02:00 Vipul Sanchezegan [facility] MAGNESIUM 2023-02-01 06:02:00 Sanchez [facility] SARS-COV2/RT-PCR ([facility] & 2023-01-31 06:07:00 [facility] 2023-01-31 06:04:00 [facility] MAG[facility]UM 2023-01-31 06:04[facility] 2023-01-31 06:04:00 Lizeth Hebert [facility] POCT-GLUCOSE METER 2023-01-30 21:12:00 Adhosmin, Afshan Patel [facility] CBC W/PLT COUNT & AUTO 2023-01-30 02:28:00 DanielVipulFuentes [facility] 2023-01-30 02:28:00 DanielVipulFuentes [facility] MAGNESIUM 2023-01-30 02:28:00 SanchezMicheleln [facility] PHOSPHORUS 2023-01-30 02:28:00 Gabrielle Barraza [facility] CBC W/PLT COUNT & AUTO 2023-01-30 02:28:00 DanielMichellen [facility] POCT-GLUCOSE METER 2023-01-29 21:22:00 Adhosmin Afshan Patel [facility] POCT-GLUCOSE METER 2023-01-29 18:53:00 Adhosmin, [facility] ECG 12-LEAD 2023-01-29 16:33:13 Daniel Fuentes [facility] ECG 12-LEAD 2023-01-29 16:33:13 Unknown, Hl7 Doctor [facility] POCT-GLUCOSE METER 2023-01-29 13:37:00 Afshan Moyer [facility] RAPID DRUG SCREEN, URINE 2023-01-29 12:24:00 Sanchez Fuentes [facility] PHOSPHORUS 2023-01-29 12:14:00 Sanchez [facility] MAGNESIUM 2023-01-29 12:14:00 [facility] COMPREHENSIVE METABOLIC 2023-01-29 12:14:00 [facility] PANEL [facility] CBC W/PLT COUNT & AUTO 2023-01-29 12:14:00 [place] Fuentes [facility] PROTHROMBIN TIME/INR 2023-01-29 12:14:00 [facility] BLOOD GAS, VENOUS 2023-01-29 12:14:00 [facility] LACTIC ACID, VENOUS 2023-01-29 12:14:00 [place] ETHANOL 2023-01-29 12:14:00 [facility] CREATINE KINASE (CK) 2023-01-29 12:14:00 [facility] CBC W/PLT COUNT & AUTO 2023-01-29 12:14:00 [place] [facility] XR CHEST 1 VIEW PORTABLE 2023-01-29 11:51:00 [facility] / BEDSIDE [facility] EKG-SCANNED 2023-01-29 00:00:00 Provider, Luisana [facility] Plan of Care Planned Activity Planned Date Details Comments Source Future Scheduled 2022-12-05 Influenza Vaccine (#1) [facility] 00:00:00 [code = Influenza Vaccine [facility] (#1)] Future Scheduled 2018-06-09 Lipid panel (procedure) [facility] Test 00:00:00 [code = 10161394] Medical Ce nter Future Scheduled 2002-06-09 DTAP/TDAP/TD VACCINES ([address] [facility] Test 00:00:00 - Tdap) [code = Medical Cent er DTAP/TDAP/TD VACCINES (1 - Tdap)] Future Scheduled 2001-06-09 HEPATITIS C SCREENING [facility] 00:00:00 [code = HEPATITIS C Medical Center SCREENING] Future Scheduled 1998-06-[address] [facility] 00:00:00 virus screening Medical Cent er (procedure) [code = 777774916] Future Scheduled [address] [facility] Test 00:00:00 Counseling and Screening [facility] (12+) [code = Tobacco Cessation Counseling and Screening (12+)] Future Scheduled 1983 COVID-19 VACCINE (#1) [facility] 00:00:00 [code = COVID-19 VACCINE [facility] (#1)] Encounters Start End Encounter Admission Attending Care Care Encounter Source Date/Time Date/Time Type Type Clinicians Facility Department ID 2023-02-03 2023-02-10 Outpatient DELICIA [facility] [id number] [facility] 12:59:00 11:52:00 BETO 2023-01-29 2023-02-03 [facility] [id number] [facility] 11:01:00 12:25:00 MACK 2023-01-29 2023-02-03 [facility] MichellAfshan Patel [facility] [id number] 11:01:00 12:25:00 [facility] 2023-01-30 2023-01-30 Outside No, Pcp [facility] [id number] 00:00:00 00:00:00 Orders [facility] 2023-01-29 2023-01-29 Outpatient ROJAS SANCHEZ [facility] [id number] SLE 11:27:40 11:27:40 FUENTES 2023-01-29 2023-01-29 Orders [facility] [id number] 00:00:00 00:00:00 Only [facility] Results Test Description Test Time Test Comments Results Result Sour e Comments ECG 12 lead 2023-11-0 Ventricular Rate [address] 6 BPMAtrial Rate [facility] 07:19:53 BPMP-R Interval 130 Medic al msQRS Duration 84 msQ-T C enter Interval 368 msQTC Calculation(Alexizezhao) 440 msP [place] 69 degreesR [place] 84 degreesT [place] 77 degrees Normal sinus rhythmNormal ECGNo previous ECGs availableConfirmed by MD CHA, EDU Mondragon ([id number]) on 02/09/2023 7:19:47 AM BASIC METABOLIC PANEL 2023-02-01 11:18:47 Test Item Value Reference Range Interpretation Comme nts SODIUM (BEAKER) (test 136 meq/L 136-145 code = 381) POTASSIUM (BEAKER) 3.9 meq/L 3.5-5.1 Specimen slightly hemolyzed (test code = 379) CHLORIDE (BEAKER) (test 103 meq/L 98-107 code = 382) CO2 (BEAKER) (test code 25 meq/L 22-29 = 355) BLOOD UREA NITROGEN 8 mg/dL 7-21 (BEAKER) (test code = 354) CREATININE (BEAKER) 0.83 mg/dL 0.57-1.25 Specimen slightly hemolyzed (test code = 358) GLUCOSE RANDOM (BEAKER) 145 mg/dL 70-105 H (test code = 652) CALCIUM (BEAKER) (test 9.4 mg/dL 8.4-10.2 Signi ficantly different than code = 697) previous result s EGFR (BEAKER) (test 115 mL/min/1.73 sq I nterpretation of eGFR values code = 1092) m Stage Descripti on Result G1 Normal or high >=90 G2 Mildly decreased 60-89 G3a Mildly to moderately 45-5 9 G3b Moderately to severely 30- 44 G4 Severly decreased 15-29 G5 Kidney failure <15Repo rted eGFR is based on the CK D-EPI 2020 equation that d oes not use a race coefficien tEstimated GFR is not as accurate as Creatinine Clearance in pr edicting glomerular filt ration rate. Estimated GFR i s not applicable for dialysis juni gonzalez [employer] ID - [id number] 10:07:33 Test Item Value Reference Range Interpretation Comments MAGNESIUM (BEAKER) 1.8 mg/dL 1.6-2.6 Specimen moderately (test code = 627) hemolyzedT his is a corrected resul t. Previous result was 1.8 mg/dL on 2022 at 0951 CDT [employer] ID - ADMINCOMPREHENSIVE METABOLIC [id number] 08:03:19 Test Item Value Reference Range Interpretation Comments TOTAL PROTEIN 4.2 gm/dL 6.0-8.3 L Specimen sligh tly (BEAKER) (test hemolyzed code = 770) ALBUMIN (BEAKER) 2.0 g/dL 3.5-5.0 L Specimen sl ightly (test code = 1145) hemolyzed ALKALINE 45 U/L 40-150 PHOSPHATASE (BEAKER) (test code = 346) BILIRUBIN TOTAL 0.3 mg/dL 0.2-1.2 Specimen sli ghtly (BEAKER) (test hemolyzed code = 377) SODIUM (BEAKER) 138 meq/L 136-145 (test code = 381) POTASSIUM (BEAKER) 2.7 meq/L 3.5-5.1 L Specimen slightly (test code = 379) hemolyzed CHLORIDE (BEAKER) 119 meq/L 98-107 H (test code = 382) CO2 (BEAKER) (test 14 meq/L 22-29 L code = 355) BLOOD UREA 6 mg/dL 7-21 L NITROGEN (BEAKER) (test code = 354) CREATININE 0.52 mg/dL 0.57-1.25 L Specimen slight ly (BEAKER) (test hemolyzed code = 358) GLUCOSE RANDOM 75 mg/dL 70-105 (BEAKER) (test code = 652) CALCIUM (BEAKER) 5.8 mg/dL 8.4-10.2 LL (test code = 697) AST (SGOT) 13 U/L 5-34 Specimen slight ly (BEAKER) (test hemolyzed code = 353) ALT (SGPT) 7 U/L 6-55 Specimen slight ly (BEAKER) (test hemolyzed code = 347) EGFR (BEAKER) 129 Interpretatio n of eGFR (test code = 1092) mL/min/1.[address] age Description sq m Result G1 Tammi l or high >=90 G2 Mildly decreased 60-89 G3a Mildl y to moderately 45-5 9 G3b Moderately to s everely 30-44 G4 Sever ly decreased 15-29 G5 Kidney failure <15Repo rted eGFR is based on the CKD-EPI 2020 equation t hat does not use a race coefficientEsti mated GFR is not as accur ate as Creatinine Leslie candice in predicting glom erular filtration rate . Estimated GFR is not appl icable for dialysis patien ts [employer] ID - [id number] 07:01:45 Test Item Value Reference Range Interpretation Comments MAGNESIUM (BEAKER) 1.1 mg/dL 1.6-2.6 L Specimen slightly (test code = 627) hemolyzed [employer] ID - ADMINSARS-CoV2/RT-PCR (HS & Ref Labs)2023-01-31 07:09:58 Test Item Value Reference Interpretation Comments Range SARS-COV2/RT-PCR Negative Negative The SARS-Co V-2 (test code = target nucleic 51166-2) acids are not detected in thi s specimen. Negat lionel results do not preclude SARS-C oV-2 infection and should not be u sed as the sole bas is for patient management decisions. Nega tive results must be combined with clinical observations, patient history , and epidemiolog ical information. A false negative result may occu r if a specimen is improperly collected, transported or handled. This S ARS CoV-2 test is a rapid, real-ilene e RT-PCR test intended for th e qualitative detection of nucleic acid fr om SARS-CoV-2 in a nasopharyngeal swab specimen colle nimesh from individual s suspected of COVID-19 by the ir healthcare provider. ANKIT (test code = This test has been ANKIT) authorized by FDA under an EUA for use by authorized laboratories. This test is only authorized for the duration of the declaration that circumstances exist justifying the authorization of emergency use of in vitro diagnostic tests for detection and/or diagnosis of COVID-19 under Section 564(b)(1) of the Federal Food, Drug and Cosmetic Act, 21 U.S.C. 360bbb-3(b)(1), unless the authorization is terminated or revoked sooner. Fact Sheet for Healthcare Providers: https://www.[employer].com/Documents/Xp ert%20Xpress%20SAR S%20CoV-2/Fact%20S heets/3023802%20S ARS-COV-2%20HEALTH CARE%20PROVIDERS%2 0FACT%20SHEET.pdf Fact Sheet for Healthcare Patients: https://www.[employer]/Documents/Xp ert%20Xpress%20SAR S%20CoV-2/Fact%20S heets/302-3801%20S ARS-COV-2%20PATIEN T%20FACT%20SHEET.p df Lab Interpretation Normal (test code = 44191-3) [facility] REF LABS)2023-01-31 07:09:58 Test Item Value Reference Range Interpretation Comments SARS-COV2/RT-PCR Negative Negative The SARS-Co V-2 target (test code = nucleic acids a re not 2072587) detected in thi s specimen. Negative result s do not preclude SARS-C oV-2 infection and s hould not be used as the may e basis for patient managem ent decisions. Nega tive results must be combine d with clinical observ ations, patient history , and epidemiological information. A false negativ e result may occur if a spec imen is improperly jose antonio ected, transported or handled. This SARS CoV-2 test is a rapid, real-time RT-PC R test intended for th e qualitative detection of nu cleic acid from SARS-CoV-2 in a nasopharyngeal swab specimen collected from individuals suspected of CO VID-19 by their healthcar e provider. This test has been authorized by FDA under an EUA for use by authorized laboratories. This test is only authorized for the duration of the declaration that circumstances exist justifying the authorization of emergency use of in vitro diagnostic tests for detection and/or diagnosis of COVID-19 under Section 564(b)(1) of the Federal Food, Drug and Cosmetic Act, 21 U.S.C. 360bbb-3(b)(1), unless the authorization is terminated or revoked sooner. Fact Sheet for Healthcare Providers: https://www.[employer] m/Documents/Xpert%20Xpress%20SARS%20CoV-2/Fact%20Sheets/3023802%64UEQQ-KAH-0%20 HEALTHCARE%20PROVIDERS%20FACT%20SHEET.pdf Fact Sheet for Healthcare Patients: https://www.[employer]/Documents/Xpert%20Xp ress%20SARS%20CoV-2/Fact%20Sheets/302-3801%16EILC-ZBD-6%20PATIENT%20FACT%20SHEET .[id number] 06:47:17 Test Item Value Reference Range Interpretation Comments MAGNESIUM (BEAKER) 1.9 mg/dL 1.6-2.6 Specimen slightly (test code = 627) hemolyzed [employer] MANISH MARCOS WCOMPREHENSIVE METABOLIC [id number] 06:47:17 Test Item Value Reference Range Interpretation Comments TOTAL PROTEIN 6.4 gm/dL 6.0-8.3 Specimen sligh tly (BEAKER) (test hemolyzed code = 770) ALBUMIN (BEAKER) 3.2 g/dL 3.5-5.0 L Specimen sl ightly (test code = 1145) hemolyzed ALKALINE 75 U/L 40-150 PHOSPHATASE (BEAKER) (test code = 346) BILIRUBIN TOTAL 0.7 mg/dL 0.2-1.2 Specimen sli ghtly (BEAKER) (test hemolyzed code = 377) SODIUM (BEAKER) 137 meq/L 136-145 (test code = 381) POTASSIUM (BEAKER) 4.2 meq/L 3.5-5.1 Specimen slightly (test code = 379) hemolyzed CHLORIDE (BEAKER) 107 meq/L 98-107 (test code = 382) CO2 (BEAKER) (test 23 meq/L 22-29 code = 355) BLOOD UREA 8 mg/dL 7-21 NITROGEN (BEAKER) (test code = 354) CREATININE 0.80 mg/dL 0.57-1.25 Specimen slight ly (BEAKER) (test hemolyzed code = 358) GLUCOSE RANDOM 104 mg/dL 70-105 (BEAKER) (test code = 652) CALCIUM (BEAKER) 8.9 mg/dL 8.4-10.2 (test code = 697) AST (SGOT) 18 U/L 5-34 Specimen slight ly (BEAKER) (test hemolyzed code = 353) ALT (SGPT) 13 U/L 6-55 Specimen slight ly (BEAKER) (test hemolyzed code = 347) EGFR (BEAKER) 116 Interpretatio n of eGFR (test code = 1092) mL/min/1.[address] age Description sq m Result G1 Tammi l or high >=90 G2 Mildly decreased 60-89 G3a Mildl y to moderately 45-5 9 G3b Moderately to s everely 30-44 G4 Severl y decreased 15-29 G5 Kidne y failure <15Reported eGF R is based on the CKD-EPI 2020 equation that d oes not use a race coefficientEsti mated GFR is not as accur ate as Creatinine Leslie candice in predicting glom erular filtration rate . Estimated GFR is not appl icable for dialysis patien ts [employer] ID - HEMANT WCBC (HEMOGRAM ONLY)2023-01-31 06:22:09 Test Item Value Reference Range Interpretation Comments WHITE BLOOD CELL COUNT (BEAKER) 11.3 K/ L 3.5-10.5 H (test code = 775) RED BLOOD CELL COUNT (BEAKER) 5.10 M/ L 4.63-6.08 (test code = 761) HEMOGLOBIN (BEAKER) (test code = 14.2 GM/DL 13.7-17.5 410) HEMATOCRIT (BEAKER) (test code = 43.3 % 40.1-51.0 411) MEAN CORPUSCULAR VOLUME (BEAKER) 85 fL 79-92 (test code = 753) MEAN CORPUSCULAR HEMOGLOBIN 27.8 pg 25.7-32.2 (BEAKER) (test code = 751) MEAN CORPUSCULAR HEMOGLOBIN CONC 32.8 GM/DL 32.3-36.5 (BEAKER) (test code = 752) RED CELL DISTRIBUTION WIDTH 14.8 % 11.6-14.4 H (BEAKER) (test code = 412) PLATELET COUNT (BEAKER) (test 244 K/CU MM 150-450 code = 756) MEAN PLATELET VOLUME (BEAKER) 9.9 fL 9.4-12.4 (test code = 754) NUCLEATED RED BLOOD CELLS 0 /100 WBC 0-0 (BEAKER) (test code = 413) POC-Glucose [id number] 21:24:48 Test Item Value Reference Range Interpretation Comments POC-Glucose Meter (test 136 mg/dL 70-110 H : TE STED AT [facility] code = 1538) [address] [facility] [place], [address]: [employer]/Techni geraldo ID = [id number] for Rosalia Yoder Lab Interpretation (test Abnormal code = 68427-6) [facility] [id number] 21:24:48 Test Item Value Reference Range Interpretation Comments POC-GLUCOSE METER 136 mg/dL 70-110 H : TESTED A T [facility] 6720 (BEAKER) (test code = [place], 1538) [address]: [employer]/Techni geraldo ID = [id number] for Rosalia Garcia ms [id number] 08:45:34 Test Item Value Reference Range Interpretation Comments PHOSPHORUS (BEAKER) 3.6 mg/dL 2.3-4.7 Specimen slightly (test code = 604) hemolyzed [employer] ID - [id number] 03:28:39 Test Item Value Reference Range Interpretation Comments MAGNESIUM (BEAKER) 2.0 mg/dL 1.6-2.6 Specimen slightly (test code = 627) hemolyzed [employer] ID - MARCOCOMPREHENSIVE METABOLIC [id number] 03:28:39 Test Item Value Reference Range Interpretation Comments TOTAL PROTEIN 6.4 gm/dL 6.0-8.3 Specimen sligh tly (BEAKER) (test hemolyzed code = 770) ALBUMIN (BEAKER) 3.3 g/dL 3.5-5.0 L Specimen sl ightly (test code = 1145) hemolyzed ALKALINE 78 U/L 40-150 PHOSPHATASE (BEAKER) (test code = 346) BILIRUBIN TOTAL 1.2 mg/dL 0.2-1.2 Specimen sli ghtly (BEAKER) (test hemolyzed code = 377) SODIUM (BEAKER) 138 meq/L 136-145 (test code = 381) POTASSIUM (BEAKER) 4.4 meq/L 3.5-5.1 Specimen slightly (test code = 379) hemolyzed CHLORIDE (BEAKER) 108 meq/L 98-107 H (test code = 382) CO2 (BEAKER) (test 21 meq/L 22-29 L code = 355) BLOOD UREA 7 mg/dL 7-21 NITROGEN (BEAKER) (test code = 354) CREATININE 0.72 mg/dL 0.57-1.25 Specimen slight ly (BEAKER) (test hemolyzed code = 358) GLUCOSE RANDOM 91 mg/dL 70-105 (BEAKER) (test code = 652) CALCIUM (BEAKER) 8.9 mg/dL 8.4-10.2 (test code = 697) AST (SGOT) 19 U/L 5-34 Specimen slight ly (BEAKER) (test hemolyzed code = 353) ALT (SGPT) 11 U/L 6-55 Specimen slight ly (BEAKER) (test hemolyzed code = 347) EGFR (BEAKER) 119 Interpretati on of eGFR (test code = 1092) mL/min/1.[address] age Description sq m Result G1 Tammi l or high >=90 G2 Mildly decreased 60-89 G3a Mildl y to moderately 45-5 9 G3b Moderately to s everely 30-44 G4 Severl y decreased 15-29 G5 Kidney failure <15Reported eGF R is based on the CKD-EPI 2020 equation that d oes not use a race coefficientEsti mated GFR is not as accur ate as Creatinine Leslie candice in predicting glom erular filtration rate . Estimated GFR is not appl icable for dialysis patien ts [employer] ID - MARCOCBC W/PLT COUNT & AUTO [id number] 02:47:44 Test Item Value Reference Range Interpretation Comments WHITE BLOOD CELL COUNT (BEAKER) 13.1 K/ L 3.5-10.5 H (test code = 775) RED BLOOD CELL COUNT (BEAKER) 5.24 M/ L 4.63-6.08 (test code = 761) HEMOGLOBIN (BEAKER) (test code = 14.3 GM/DL 13.7-17.5 410) HEMATOCRIT (BEAKER) (test code = 44.0 % 40.1-51.0 411) MEAN CORPUSCULAR VOLUME (BEAKER) 84 fL 79-92 (test code = 753) MEAN CORPUSCULAR HEMOGLOBIN 27.3 pg 25.7-32.2 (BEAKER) (test code = 751) MEAN CORPUSCULAR HEMOGLOBIN CONC 32.5 GM/DL 32.3-36.5 (BEAKER) (test code = 752) RED CELL DISTRIBUTION WIDTH 14.9 % 11.6-14.4 H (BEAKER) (test code = 412) PLATELET COUNT (BEAKER) (test 265 K/CU MM 150-450 code = 756) MEAN PLATELET VOLUME (BEAKER) 9.6 fL 9.4-12.4 (test code = 754) NUCLEATED RED BLOOD CELLS 0 /100 WBC 0-0 (BEAKER) (test code = 413) NEUTROPHILS RELATIVE PERCENT 74 % (BEAKER) (test code = 429) LYMPHOCYTES RELATIVE PERCENT 18 % (BEAKER) (test code = 430) MONOCYTES RELATIVE PERCENT 6 % (BEAKER) (test code = 431) EOSINOPHILS RELATIVE PERCENT 1 % (BEAKER) (test code = 432) BASOPHILS RELATIVE PERCENT 0 % (BEAKER) (test code = 437) NEUTROPHILS ABSOLUTE COUNT 9.70 K/ L 1.78-5.38 H (BEAKER) (test code = 670) LYMPHOCYTES ABSOLUTE COUNT 2.37 K/ L 1.32-3.57 (BEAKER) (test code = 414) MONOCYTES ABSOLUTE COUNT (BEAKER) 0.83 K/ L 0.30-0.82 H (test code = 415) EOSINOPHILS ABSOLUTE COUNT 0.10 K/ L 0.04-0.54 (BEAKER) (test code = 416) BASOPHILS ABSOLUTE COUNT (BEAKER) 0.04 K/ L 0.01-0.08 (test code = 417) IMMATURE GRANULOCYTES-RELATIVE 0.20 % 0.00-1.00 PERCENT (BEAKER) (test code = 2801) POCT-GLUCOSE [id number] 21:34:18 Test Item Value Reference Range Interpretation Comments POC-GLUCOSE METER 97 mg/dL 70-110 : TESTED A T [facility] 6720 (BEAKER) (test code = [facility], 153) [address]: [employer]/Techni geraldo ID = [id number] for Dura n, Alex POCT-GLUCOSE [id number] 19:04:43 Test Item Value Reference Range Interpretation Comments POC-GLUCOSE METER 94 mg/dL 70-110 : TESTED A T [facility] 6720 (BEAKER) (test code = [facility], 153) [address]: [employer]/Techni geraldo ID = [id number] for Togl jocelyn ([facility])Jennifer Rapid drug screen, [id number] 14:57:46 Test Item Value Reference Range Interpretation Comments Barbiturate Screen Negative Negative (test code = 84497-3) Benzodiazepine Screen Positive Negative A (test code = 08567-4) Cocaine (Metab.) Positive Negative A Screen (test code = 3397-7) Methadone Screen (test Negative Negative code = 66835-7) Opiate Screen (test Negative Negative code = 89151-2) Cannabinoid Screen Positive Negative A (test code = 20774-6) Amph/Methamph Screen Positive Negative A (test code = 43111-2) Phencyclidine Screen Negative Negative (test code = 29213-9) pH, UA (test code = 5.0 5.0-8.0 5803-2) ANKIT (test code = ANKIT) DRUG CUTOFF CONC.Cocaine 300 ng/mL Cannabinoid 50 ng/mLBenzodiazepine 200 ng/mLBarbiturate 200 ng/mLPhencyclidine 25 ng/mLOpiate 300 ng/mLMethadone 300 ng/mLAmphetamine/ 1000 ng/mL Methamphetamine This assay provides an unconfirmed qualitative test result for the clinical management of patients in emergency situations. Chain of custody not maintained. Some hjif-fie-vcdluna medications, as well as adulterants, may cause inaccurate results. Clinical correlation should be applied. A more comprehensive drug screen or confirmation of a detected drug may be performed upon request.[employer] ID - [id number] Lab Interpretation Abnormal (test code = [id number]) [facility] Center[facility]AP[facility] SCREEN, [id number] 14:57:46 Test Item Value Reference Range Interpretation Comments BARBITURATE URINE (BEAKER) (test Negative Negative code = 725) BENZODIAZEPINE SCREEN URINE (BEAKER) Positive Negative A (test code = 726) COCAINE (METAB.) SCREEN (BEAKER) Positive Negative A (test code = 1164) METHADONE SCREEN (BEAKER) (test code Negative Negative = 1436) OPIATE SCREEN URINE (BEAKER) (test Negative Negative code = 734) CANNABINOID SCREEN URINE (BEAKER) Positive Negative A (test code = 727) AMPH/METHAMPH SCREEN (BEAKER) (test Positive Negative A code = 1438) PHENCYCLIDINE SCREEN URINE (BEAKER) Negative Negative (test code = 608) PH UA (BEAKER) (test code = 467) 5.0 5.0-8.0 DRUG CUTOFF CONC.Cocaine 300 ng/mL Cannabinoid 50 ng/mLBenzodiazepine 200 ng/mLBarbiturate 200 ng/mLPhencyclidine 25 ng/mLOpiate 300 ng/mLMethadone 300 ng/mLAmphetamine/ 1000 ng/mL MethamphetamineThis assay provides an unconfirmed qualitative test result for the clinical management of patients in emergency situations. Chain of custody not maintained. Some [id number] medications, as well as adulterants, may cause inaccurate results. Clinical correlation should be applied. A more comprehensive drug screen or confirmation of a detected drug may be performed upon request.[employer] ID - ADMINCREATINE KINASE (CK)2023-01-29 14:42:05 Test Item Value Reference Range Interpretation Comments CREATINE KINASE TOTAL ([facility]) (test 83 U/L 29-200 code = 380) [employer] ID - ADMPOCT-GLUCOSE [id number] 13:49:08 Test Item Value Reference Range Interpretation Comments POC-GLUCOSE METER 92 mg/dL 70-110 : TESTED A T [facility] 6720 ([facility]) (test code = [place], 1538) [address]: [employer]/Techni geraldo ID = [id number] for Jose Carlos banks ([facility])Jennifer ACETAMINOPHEN [id number] 12:54:37 Test Item Value Reference Range Interpretation Comments ACETAMINOPHEN LEVEL < ug/mL 10.0-30.0 L Specimen slightly ([facility]) (test code = hemoly zed 344) Therapeutic Range: 10.0-30.0 g/mLToxic Levels: >200.0 g/mLOperator ID - ADMIN [id number] 12:49:54 Test Item Value Reference Range Interpretation Comments MAGNESIUM (BEAKER) (test code = 2.0 mg/dL 1.6-2.6 627) [employer] ID - [id number] 12:49:54 Test Item Value Reference Range Interpretation Comments PHOSPHORUS (BEAKER) (test code = 3.6 mg/dL 2.3-4.7 604) [employer] ID - ADMINCOMPREHENSIVE METABOLIC [id number] 12:49:53 Test Item Value Reference Range Interpretation Comments TOTAL PROTEIN 6.6 gm/dL 6.0-8.3 (AKER) (test code = 770) ALBUMIN (BEAKER) 3.5 g/dL 3.5-5.0 (test code = 1145) ALKALINE 81 U/L 40-150 PHOSPHATASE ([facility]) (test code = 346) BILIRUBIN TOTAL 0.5 mg/dL 0.2-1.2 (BEAKER) (test code = 377) SODIUM (BEAKER) 141 meq/L 136-145 (test code = 381) POTASSIUM (BEAKER) 4.3 meq/L 3.5-5.1 (test code = 379) CHLORIDE (BEAKER) 109 meq/L 98-107 H (test code = 382) CO2 (BEAKER) (test 23 meq/L 22-29 code = 355) BLOOD UREA 6 mg/dL 7-21 L NITROGEN (BEAKER) (test code = 354) CREATININE 0.98 mg/dL 0.57-1.25 (BEAKER) (test code = 358) GLUCOSE RANDOM 94 mg/dL 70-105 (BEAKER) (test code = 652) CALCIUM (BEAKER) 8.6 mg/dL 8.4-10.2 (test code = 697) AST (SGOT) 27 U/L 5-34 (BEAKER) (test code = 353) ALT (SGPT) 16 U/L 6-55 (BEAKER) (test code = 347) EGFR (BEAKER) 102 Interpretatio n of eGFR (test code = 1092) mL/min/1.[address] age Description sq m Result G1 Tammi l or high >=90 G2 Mildly decreased 60-89 G3a Mild ly to moderately 45-5 9 G3b Moderately to s everely 30-44 G4 Severl y decreased 15-29 G5 Kidney failure <15Reported eGF R is based on the CKD-EPI 2021 equation that d oes not use a race coefficientEsti mated GFR is not as accur ate as Creatinine Leslie harvey in predicting glom erular filtration rate . Estimated GFR is not appl icable for dialysis patien ts [employer] ID - [id number] 12:46:35 Test Item Value Reference Range Interpretation Comments ETHANOL (BEAKER) (test code = 400) 36 mg/dL <=10 H [employer] ID - ADMINCBC W/PLT COUNT & AUTO [id number] 12:42:46 Test Item Value Reference Range Interpretation Comments WHITE BLOOD CELL COUNT (BEAKER) 12.8 K/ L 3.5-10.5 H (test code = 775) RED BLOOD CELL COUNT (BEAKER) 5.09 M/ L 4.63-6.08 (test code = 761) HEMOGLOBIN (BEAKER) (test code = 14.5 GM/DL 13.7-17.5 410) HEMATOCRIT (BEAKER) (test code = 44.1 % 40.1-51.0 411) MEAN CORPUSCULAR VOLUME (BEAKER) 87 fL 79-92 (test code = 753) MEAN CORPUSCULAR HEMOGLOBIN 28.5 pg 25.7-32.2 (BEAKER) (test code = 751) MEAN CORPUSCULAR HEMOGLOBIN CONC 32.9 GM/DL 32.3-36.5 (BEAKER) (test code = 752) RED CELL DISTRIBUTION WIDTH 15.1 % 11.6-14.4 H (BEAKER) (test code = 412) PLATELET COUNT (BEAKER) (test 270 K/CU MM 150-450 code = 756) MEAN PLATELET VOLUME (BEAKER) 9.2 fL 9.4-12.4 L (test code = 754) NUCLEATED RED BLOOD CELLS 0 /100 WBC 0-0 (BEAKER) (test code = 413) NEUTROPHILS RELATIVE PERCENT 74 % (BEAKER) (test code = 429) LYMPHOCYTES RELATIVE PERCENT 18 % (BEAKER) (test code = 430) MONOCYTES RELATIVE PERCENT 7 % (BEAKER) (test code = 431) EOSINOPHILS RELATIVE PERCENT 1 % (BEAKER) (test code = 432) BASOPHILS RELATIVE PERCENT 0 % (BEAKER) (test code = 437) NEUTROPHILS ABSOLUTE COUNT 9.48 K/ L 1.78-5.38 H (BEAKER) (test code = 670) LYMPHOCYTES ABSOLUTE COUNT 2.27 K/ L 1.32-3.57 (BEAKER) (test code = 414) MONOCYTES ABSOLUTE COUNT (BEAKER) 0.88 K/ L 0.30-0.82 H (test code = 415) EOSINOPHILS ABSOLUTE COUNT 0.12 K/ L 0.04-0.54 (BEAKER) (test code = 416) BASOPHILS ABSOLUTE COUNT (BEAKER) 0.05 K/ L 0.01-0.08 (test code = 417) IMMATURE GRANULOCYTES-RELATIVE 0.30 % 0.00-1.00 PERCENT (BEAKER) (test code = 2801) XR chest 1 view portable / [id number] 12:40:32XR CHEST 1 VIEW PORTABLE / BEDSIDE INDICATION: eval ETT COMPARISON: Prior day's exam FINDINGS: Portable frontal view [facility] / [id number] 12:40:32 [facility] 1985 Sex: MXR CHEST 1 VIEW PORTABLE / BEDSIDEINDICATION: eval ETTCOMPARISON: Prior day's examFINDINGS: Portable frontal view of the chest. IMPRESSION:Support Lines: ET tube tip is 3 cm superior to the tiffanie. NG tubedescends below the diaphragm. Lungs and pleura: Lungs are clear. No significant pneumothorax.Heartand mediastinum: Stable contours. Stable surgical changes.Additional findings: None.Electronically Signed By: Meghan Weaver01/29/2023 12:42 CDTWorkstation Name: [id number] GAS, [id number] 12:39:37 Test Item Value Reference Range Interpretation Comments PH VENOUS (BEAKER) (test code = 7.35 7.32-7.42 701) PCO2 VENOUS (BEAKER) (test code = 48 mm Hg 41-51 755) PO2 VENOUS (BEAKER) (test code = 32 mm Hg 25-40 702) O2 SATURATION VENOUS (BEAKER) 58.6 % 40.0-70.0 (test code = 703) HCO3 VENOUS (BEAKER) (test code = 26 mmol/L 21-29 705) BASE EXCESS VENOUS (BEAKER) (test -0.4 mmol/L -2.0-3.0 code = 704) PATIENT TEMPERATURE (BEAKER) 37.0 (test code = 1818) FIO2 (BEAKER) (test code = 1819) 100.0 LACTIC ACID, [id number] 12:35:29 Test Item Value Reference Range Interpretation Comments LACTATE BLOOD VENOUS 1.99 mmol/L 0.50-2.00 Specime n moderately (2) (BEAKER) (test hemolyzed code = 2872) [employer] ID - ADMINPROTHROMBIN TIME/[id number] 12:30:11 Test Item Value Reference Range Interpretation Comments PROTIME (BEAKER) (test code = 13.2 seconds 11.9-14.2 759) INR (BEAKER) (test code = 370) 0.99 <=5.90 RECOMMENDED COUMADIN/WARFARIN INR THERAPY RANGESSTANDARD DOSE: 2.0 - 3.0 Includes: PROPHYLAXIS for venous thrombosis, systemic embolization; TREATMENT for venous thrombosis and/or pulmonary embolus.HIGH RISK: Target INR is 2.5-3.5 for patients with mechanical heart valves.[id number] 00:00:00Ordered by an unspecified provider.[facility]
[2023-03-06] MEDS ORDERED: TDAP (DIPHTH,PERTUSS(ACELL),TET VAC) 0.5 ML VIAL IMVAC ONE (12:04)
[2023-03-06] MEDS ORDERED: LIDOCAINE 1% MPF 30 ML VIAL ONE (12:04)
--- NOTE | 2023-03-06 12:47 | RAD REPORT ---
EXAM DESCRIPTION: RAD - Hand Left 3 View - 03/06/2023 12:31 pm CLINICAL HISTORY: Laceration COMPARISON: No comparisons FINDINGS/IMPRESSION: No acute fracture. No malalignment. No significant focal degenerative changes.
--- NOTE | 2023-03-06 13:19 | EDPHYS ---
Physician Documentation [facility] Name: Luca Zepeda Age: 37 yrs Sex: Male : 1985 Arrival Date: 03/06/2023 Time: 11:22 Bed 12 Private MD: ED Physician Freddie Zepeda HPI: 03/06 11:58 This 37 yrs old Black Male presents to ER via Ambulatory with complaints of Finger ms3 Laceration. 11:58 37-year-old male with no past medical history presents to the emergency department for ms3 left index finger laceration status post cutting his finger with a saws all. Patient states pain is a 10/10. Patient denies any alleviating or inciting factors. Historical: - Allergies: 11:37 No Known Allergies; hb - Home Meds: 11:37 None [Active]; hb - PMHx: 11:37 None; hb - PSHx: 11:37 None; hb - Immunization history:: Adult Immunizations up to date, Last tetanus immunization: < 10 years ago. - Social history:: Smoking status: Patient denies any tobacco usage or history of. ROS: 12:55 Constitutional: Negative for fever, and chills. Neck: Negative for injury, pain, and ms3 swelling, Cardiovascular: Negative for chest pain, and palpitations. Respiratory: Negative for shortness of breath, cough, wheezing, and pleuritic chest pain, Abdomen/GI: Negative for abdominal pain, nausea, vomiting, diarrhea, and constipation, MS/Extremity: Negative for injury and deformity, 12:55 Skin: Positive for laceration(s), 12:55 All other systems are negative, Exam: 12:55 Constitutional: This is a well developed, well nourished patient who is awake, alert, ms3 and in no acute distress. Cardiovascular: Regular rate and rhythm with a normal S1 and S2. No gallops, murmurs, or rubs. Normal PMI, no JVD. No pulse deficits. Respiratory: Lungs have equal breath sounds bilaterally, clear to auscultation and percussion. No rales, rhonchi or wheezes noted. No increased work of breathing, no retractions or nasal flaring. Abdomen/GI: Soft, non-tender, with normal bowel sounds. No distension or tympany. No guarding or rebound. No evidence of tenderness throughout. 12:55 Musculoskeletal/extremity: 2 cm laceration on left index finger. Vital Signs: 11:36 BP 156 / 86; Pulse 99; Resp 16; Temp 98.2; Pulse Ox 100% on R/A; Weight 72.57 kg; hb Height 5 ft. 8 in. ; Pain 8/10; 11:36 Body Mass Index 24.33 (72.57 kg, 172.72 cm) hb 11:36 Pain Scale: Adult hb Laceration: 13:18 Wound Repair of 2cm ( 0.8in ) subcutaneous laceration to Left index finger. Irregularly ms3 shaped.. Skin/tissue flap noted.. Distal neuro/vascular/tendon intact. Anesthesia: Digital block administered with 5 mls of 1% lidocaine. Wound prep: Moderate cleansing by me. Skin closed with 3 5-0 Prolene using simple sutures and sterile technique. Patient tolerated well. MDM: 11:41 Patient medically screened. ms3 13:18 Differential diagnosis: open fracture, closed fracture, Laceration. Data reviewed: ms3 vital signs, nurses notes, radiologic studies, and as a result, I will discharge patient. I considered the following discharge prescriptions or medication management in the emergency department Medications were administered in the Emergency Department. See MAR. Independent interpretation of the following test(s) in the Emergency Department X-Ray: My interpretation is Left hand x-ray images reviewed by me do not reveal fracture. Counseling: I had a detailed discussion with the patient and/or guardian regarding the historical points, exam findings, and any diagnostic results supporting the discharge/admit diagnosis, radiology results, the need for outpatient follow up, to return to the emergency department if symptoms worsen or persist or if there are any questions or concerns that arise at home. Special discussion: I discussed with the patient/guardian in detail that at this point there is no indication for admission to the hospital. It is understood, however, that if the symptoms persist or worsen the patient needs to return immediately for re-evaluation. ED course: Patient's wound hemostatic. Patient to follow-up with Dr. Banerjee in 7 to 10 days for suture removal. Patient stands and agrees with plan. All questions were answered. Return precautions discussed include worsening symptoms, or any other concerns. 03/06 11:59 Order name: Hand Left 3 View XRAY; Complete Time: 12:56 ms3 Administered Medications: 11:59 Drug: Boostrix Tdap IM 0.5 ml IM once; as a single dose Route: IM; Site: left deltoid; [facility] 13:01 Drug: Lidocaine Infiltration (1 %) 10 ml 20 ml Infiltration once; to bedside {Note: By christiano Zepeda.} Volume: 20 ml; Route: Infiltration; Disposition Summary: 03/06/23 13:18 Discharge Ordered Notes: Location: Home ms3 Condition: Stable ms3 Diagnosis - Laceration without foreign body of left index finger without damage to nail ms3 Followup: ms3 - With: Marvin Banerjee, DO - When: 7 - 10 days - Reason: Staple/Suture removal Discharge Instructions: - Discharge Summary Sheet ms3 - Laceration Care, Adult ms3 Forms: - Work release form eb - Medication Reconciliation Form ms3 - Thank You Letter ms3 - Antibiotic Education ms3 - Prescription Opioid Use ms3 - Patient Portal Instructions ms3 - Leadership Thank You Letter ms3 Signatures: Dispatcher [employer] Barbara Fitzpatrick, RN VICTOR MANUEL Sher Caban RN RN Freddie Mackey DO DO ms3
--- NOTE | 2023-03-06 13:19 | ER ---
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 Coronavirus screen: hb At this time, the client does not indicate any symptoms associated with coronavirus-19. Ebola Screen: No symptoms or risks identified at this time. Initial Sepsis Screen: Does the patient meet any 2 criteria? No. Patient's initial sepsis screen is negative. Does the patient have a suspected source of infection? No. Patient's initial sepsis screen is negative. Risk Assessment: Do you want to hurt yourself or someone else? Patient reports no desire to harm self or others. Onset of symptoms was March 06, 2023. 11:36 Method Of Arrival: Ambulatory hb 11:36 Acuity: JOHN 4 hb Historical: - Allergies: 11:37 No Known Allergies; hb - Home Meds: 11:37 None [Active]; hb - PMHx: 11:37 None; hb - PSHx: 11:37 None; hb - Immunization history:: Adult Immunizations up to date, Last tetanus immunization: < 10 years ago. - Social history:: Smoking status: Patient denies any tobacco usage or history of. Screenin:59 [facility] ED Fall Risk Assessment (Adult) Score/Fall Risk Level 0 - 2 = Low Risk jl7 Oriented to surroundings, Maintained a safe environment. Abuse screen: Denies threats or abuse. Denies injuries from another. Nutritional screening: No deficits noted. Tuberculosis screening: No symptoms or risk factors identified. Vital Signs: 11:36 BP 156 / 86; Pulse 99; Resp 16; Temp 98.2; Pulse Ox 100% on R/A; Weight 72.57 kg; hb Height 5 ft. 8 in. ; Pain 8/10; 11:36 Body Mass Index 24.33 (72.57 kg, 172.72 cm) hb 11:36 Pain Scale: Adult hb ED Course: 11:24 Patient arrived in ED. rg4 11:33 Freddie Zepeda DO is Attending Physician. ms3 11:37 Triage completed. hb 11:37 Arm band placed on. hb 11:46 Sher Caban, RN is Primary Nurse. jl7 11:59 Patient has correct armband on for positive identification. Provided Education on: christiano wound care. 12:33 Hand Left 3 View XRAY In Process Unspecified. EDMS 13:18 Marvin Banerjee DO is Referral Physician. ms3 Administered Medications: 11:59 Drug: Boostrix Tdap IM 0.5 ml IM once; as a single dose Route: IM; Site: left deltoid; jl7 13:01 Drug: Lidocaine Infiltration (1 %) 10 ml 20 ml Infiltration once; to bedside {Note: By christiano Zepeda.} Volume: 20 ml; Route: Infiltration; Medication: 11:59 Vaccine Information Statement (VIS) provided today. Questions and/or concerns christiano addressed. VIS edition date: November 09, 2022. Outcome: 13:18 Discharge ordered by MD. ms3 13:48 Discharged to home ambulatory, ld1 13:48 Condition: improved 13:48 Discharge instructions given to patient, Instructed on discharge instructions, follow up and referral plans. Demonstrated understanding of instructions, follow-up care, wound care, 13:50 Patient left the ED. ld1 Signatures: Dispatcher [employer] EDOH Barbara Linares, RN VICTOR MANUEL Olivia Frazier rg4 Sher Caban, RN RN jl7 Freddie Zepeda DO DO ms3 Akosua Zepeda RN RN ld1
[2023-03-06 13:54] VITALS: BP 156/86; TEMP 98.2; O2SAT 100
== END 2023-03-06 13:50 | disposition home or self-care (01) ==
LOC: ER 11:22
PROC: 0HQGXZZ Repair Left Hand Skin, External Approach (ICD-10-PCS; principal; 2023-03-06)
DX: S61.211A Laceration without foreign body of left index finger without damage to nail, initial encounter (principal)
CPT/HCPCS: 96372; 99284; J2001